=== PATIENT | female | born 1930 | race Asian ===

== ENCOUNTER 2016-11-11 09:27 | Emergency (ER) | payer OTHER ==
[~2016-11-11] VITALS: Ht 172.7 cm; Wt 75.8 kg
[2016-11-11 09:34] VITALS: TEMP 36.3; Ht 172.7 cm; Wt 75.8 kg
[2016-11-11] MEDS ORDERED: FURO-85 PO (09:39)
[2016-11-11] MEDS ORDERED: CMD/25 PO (09:39)
[2016-11-11] MEDS ORDERED: WARF5TAB90 PO (09:39)
[2016-11-11] MEDS ORDERED: LOSA1TAB PO (09:48)
[2016-11-11] MEDS ORDERED: MoRPHine SULFATE 4 MG/ML 1 ML CARP\\VIAL IV STA (09:52)
[2016-11-11] MEDS ORDERED: SODIUM CHLORIDE 0.9% 1000ML 1,000 ML IV ONE (10:00)
--- NOTE | 2016-11-11 10:27 | DIAGNOSTIC IMAGING REPORT ---
RIGHT FOREARM 2 VIEWS ROUTINE CLINICAL HISTORY: Right forearm and wrist pain. Trauma. COMPARISON: None. DISCUSSION: There is a comminuted distal radial fracture. The distal fragment is dorsally displaced x 6 mm. The examination is moderately limited from a positioning standpoint. Neither a true AP or a true lateral view were obtained. There is no evidence for soft tissue swelling. IMPRESSION: Technically limited study from a positioning standpoint. Comminuted distal radial fracture. Electronically signed by: Jian Patricia M.D. 11/11/2016 10:26 AM Dictated Date/Time: 11/11/2016 10:24 AM
--- NOTE | 2016-11-11 10:28 | DIAGNOSTIC IMAGING REPORT ---
RIGHT WRIST 2 VIEWS CLINICAL HISTORY: Fall with right wrist injury. FINDINGS: AP and lateral views of the right wrist are attempted. The examination is significantly degraded by suboptimal patient positioning. The skeletal structures are osteopenic. There is an impacted and comminuted fracture of the distal radial metaphysis with intra-articular extension. There is apex volar angulation and at least 8 mm of posterior distraction of the distal fragments. There are numerous small posteriorly distracted fracture fragments. The distal ulna is grossly intact. Overlying soft tissue edema is noted. There is atherosclerotic calcification of the regional arteries. IMPRESSION: There is an impacted, comminuted, angulated, and distracted fracture of the distal radial metaphysis with intra-articular extension as above. Electronically signed by: Jean Marie Olmos M.D. 11/11/2016 10:27 AM Dictated Date/Time: 11/11/2016 10:25 AM
--- NOTE | 2016-11-11 10:51 | DIAGNOSTIC IMAGING REPORT ---
AP CHEST WITH RIGHT-SIDED RIB SERIES CLINICAL HISTORY: Fall with right chest wall pain. FINDINGS: An AP chest radiograph with 5 additional views from a right-sided rib series are obtained. No prior studies are available for comparison at the time of dictation. The AP view is significantly degraded by patient rotation. The heart is enlarged and there is atherosclerotic calcification of the thoracic aorta. The pulmonary vasculature is noncongested. Calcified hilar lymph nodes are identified. A benign-appearing calcification is seen in the superior mediastinum, likely related to the thyroid gland. Chronic interstitial thickening is noted. There is no airspace consolidation, large pleural effusion, or pneumothorax. The skeletal structures are osteopenic. Question a distracted right anterior eighth and ninth rib fractures. The remainder of the bony thorax is grossly intact. Compression deformities are noted in the thoracolumbar spine. A 2 cm calcification in the right upper quadrant may represent a large right renal stone. IMPRESSION: 1. Cardiomegaly with no acute cardiopulmonary abnormality. 2. Question nondistracted right anterior eighth and ninth rib fractures. Correlate for point tenderness at this site. 3. An indeterminant 2 cm calcification is identified in the right upper quadrant, possibly representing a renal calculus. 4. Question a large calcified thyroid goiter. Electronically signed by: Jean Marie Olmos M.D. 11/11/2016 10:49 AM Dictated Date/Time: 11/11/2016 10:44 AM
[2016-11-11 11:16] LABS: BASO % 0.4 %; BASO ABS # 0.02 K/uL (0-0.2); COMPLETE YES; HEMATOCRIT 31.5 % (37-47); IG% 0.4 %; LYMPH % 11.8 %; LYMPH ABS # 0.59 K/uL (1.2-3.4); MEAN CELL VOLUME 84.2 fL (80-100); MEAN CORPUSCULAR HEMOGLOBIN 26.5 pg (25-34); MEAN CORPUSCULAR HGB CONC 31.4 g/dl (32-36); MONO % 7.6 %; NEUT % 78.8 %; PLATELET COUNT 198 K/uL (130-400); RED BLOOD COUNT 3.74 M/uL (4.2-5.4)
[2016-11-11 11:30] LABS: BUN/CREATININE RATIO 23.3 (10-20); CREATININE 1.2 mg/dl (0.60-1.20)
--- NOTE | 2016-11-11 11:33 | EMERGENCY ROOM VISIT NOTE ---
ED Visit Note First contact with patient: 09:38 The patient was seen and examined with Osman Love PA-C. I agree with the history, physical and findings. Please see the note for disposition and details.
[2016-11-11] MEDS ORDERED: OXYC-57 PO (12:24)
[2016-11-11 13:15] VITALS: BP 116/78; PULSE 86; O2SAT 96
--- NOTE | 2016-11-11 14:12 | EMERGENCY ROOM VISIT NOTE ---
ED Visit Note First contact with patient: 09:38 Chief Complaint: Right wrist pain. History of Present Illness: Ms. Elizabeth is an 86-year-old [place] female who is brought into the ED via ambulance accompanied by her daughter complaining of right wrist pain. She noted that the patient does not speak Macanese and her daughter interprets for her. Daughter reports that her mother was doing gardening and fell injuring her right wrist and forearm when she lost her balance on an uneven walkway. It is reported that she did not strike her head or have a loss of consciousness. Since the fall she has been complaining of right wrist pain and right lateral rib pain. Patient complains of severe distal radius/ulna pain. She is not able to describe her discomfort. She rates her discomfort 10/10. She denies radiation of pain. All movements and palpation of the distal radius and ulna increases her discomfort. Patient has not had any medications for pain prior to arrival at the hospital. She denies any associated headache, dizziness, neck pain, shoulder pain, elbow pain, hand weakness/numbness/tingling, neck pain, chest pain, abdominal pain, nausea, vomiting. Additionally patient complains of right sided rib pain. She was unable to describe this pain but reports it was less than her wrist pain. Her pain worsens with deep inspiration and palpation. She has not identified any alleviating factors related to the pain. She denies any shortness of breath, difficulty breathing, cough, wheezing, Review of Systems: As noted above in history of present illness. 8 body systems were reviewed and found to be negative as noted above. Past Medical History: Heart disease, hypertension, deep vein thrombus, status post cholecystectomy, unspecified eye surgery and hip/knee replacement surgery. Current Medications: Lasix, Coumadin, Cozaar. Allergies to Medications: Lisinopril. Social History: Patient is not employed; she lives with her daughter and feels safe in her home environment; daughter denies tobacco and alcohol use. Physical Examination: Vital Signs: Date Time Temp Pulse Resp B/P Pulse Ox O2 Delivery O2 Flow Rate FiO2 11/11/16 13:15 86 116/78 96 11/11/16 11:57 83 20 99 11/11/16 11:30 129/77 11/11/16 11:27 82 25 97 11/11/16 11:00 134/83 11/11/16 10:57 92 37 98 11/11/16 10:49 139/102 11/11/16 09:34 36.3 65 22 124/77 95 Room Air 11/11/16 09:33 124/77 GENERAL: 86-year-old female in moderate distress due to pain, nontoxic-appearing , afebrile and hemodynamically stable. NEUROLOGICAL: Awake, alert and oriented to person, place and time. Answering questions appropriately and following commands. No focal motor sensory deficits. Cranial nerves II through XII grossly intact. SKIN: Warm, dry and pink. No soft tissue trauma noted. HEENT: Atraumatic and normocephalic. Skull: No bony tenderness, depressions, deformity or crepitus. No raccoon's eyes or becerra signs. No drainage from ears and air; no hemotympanum. Face: No visible trauma, bony tenderness or ecchymosis. PERRLA. No malocclusion. No intraoral trauma. Airway patent. Trachea midline. No jugular venous distention. BACK: No tenderness over the bony cervical and thoracic spine. No step-offs, swelling, crepitus or ecchymosis. THORAX: Lungs sounds are clear to auscultation and equal bilaterally with symmetrical chest wall. Tenderness over the right lateral ribs, no crepitus, subcutaneous air or deformities noted. ABDOMEN: Flat, soft and nontender. Positive bowel sounds in all quadrants. No guarding, rigidity or organomegaly. RIGHT UPPER EXTREMITY: No tenderness in the shoulder, humerus or elbow. Moderate tenderness over the distal radius ulna with swelling, early bruising and bony deformity. No tenderness throughout the hand or fingers. Sensation intact to light touch throughout the fingers and capillary refill is brisk. ED Course: Patient is assessed as noted above. Laboratory Testing: Test 11/11/16 10:49 Range/Units White Blood Count 5.00 4.8-10.8 K/uL Red Blood Count 3.74 4.2-5.4 M/uL Hemoglobin 9.9 12.0-16.0 g/dL Hematocrit 31.5 37-47 % Mean Corpuscular Volume 84.2 80-100 fL Mean Corpuscular Hemoglobin 26.5 25-34 pg Mean Corpuscular Hemoglobin Concent 31.4 32-36 g/dl Platelet Count 198 130-400 K/uL Mean Platelet Volume 10.0 7.4-10.4 fL Neutrophils (%) (Auto) 78.8 % Lymphocytes (%) (Auto) 11.8 % Monocytes (%) (Auto) 7.6 % Eosinophils (%) (Auto) 1.0 % Basophils (%) (Auto) 0.4 % Neutrophils # (Auto) 3.94 1.4-6.5 K/uL Lymphocytes # (Auto) 0.59 1.2-3.4 K/uL Monocytes # (Auto) 0.38 0.11-0.59 K/uL Eosinophils # (Auto) 0.05 0-0.5 K/uL Basophils # (Auto) 0.02 0-0.2 K/uL RDW Standard Deviation 49.9 36.4-46.3 fL RDW Coefficient of Variation 16.0 11.5-14.5 % Immature Granulocyte % (Auto) 0.4 % Immature Granulocyte # (Auto) 0.02 0.00-0.02 K/uL Sodium Level 142 136-145 mmol/L Potassium Level 4.0 3.5-5.1 mmol/L Chloride Level 109 98-107 mmol/L Carbon Dioxide Level 26 21-32 mmol/L Anion Gap 7.0 3-11 mmol/L Blood Urea Nitrogen 28 7-18 mg/dl Creatinine 1.20 0.60-1.20 mg/dl Est Creatinine Clear Calc Drug Dose 32.7 ml/min Estimated GFR () 46.7 Estimated GFR (Non- 40.3 BUN/Creatinine Ratio 23.3 10-20 Random Glucose 94 70-99 mg/dl Calcium Level 9.0 8.5-10.1 mg/dl Right Wrist X-Rays: Were read by myself and the radiologist and shows an impacted, comminuted, angulated and distraction fracture of the distal radial metaphysis with intra-articular extension. Right Forearm X-Rays: Were read by myself and the radiologist showing the same fractures but no additional fractures or dislocations. PA Chest and Rib X-Rays: Were read by myself and the radiologist showing cardiomegaly with no acute cardiopulmonary abnormalities, probable nondistracting right anterior eighth and ninth rib fractures and an indeterminate to centimeter calcification in the right upper quadrant representing a possible renal calculus and questionable large calcified thyroid goiter. Patient was hydrated with normal saline and given 4 mg of morphine IV. Patient's case was reviewed with Dr. Penaloza; he independently assessed the patient and we agreed on diagnostic approach, treatment, disposition and plan. Patient's case was consulted with case management and Dr. Gaurav Goddard, orthopedic surgeon; after lengthy conversations involving the patient and Dr. Goddard's office and office follow-up was made today for possible surgical repair on Tuesday. Patient was placed in a volar splint with sling. Because of patient's age multiple considerations including hospital admission, admission to rehabilitation hospital and outpatient care were discussed. At its conclusion it was decided based on the daughter's once his that patient would go home with her and if any complications return for further evaluation. We did trial the patient for ambulation and she was able to do that successfully with slight arm support. Daughter was educated about tonight's findings and instructed on her treatment plan; she verbalizes understanding and agreement with this plan. Clinical Impression: Distal right radius fracture. Right sided rib fractures. Status post fall. Disposition: Patient discharged home in stable condition accompanied by her daughter; prior to departure she was reassessed and rated her discomfort 5/10. Plan: Patient was discharged with instructions to go to the [facility] office. Comfort measures including rest, ice, splint and sling use and Percocet were discussed with the daughter; she was given appropriate precautions for narcotics. Daughter was encouraged return her mother to the emergency department for any concerning symptoms or any new symptoms as needed.
== END 2016-11-11 13:15 | disposition home or self-care (01) ==
LOC: EDBD 09:27 → C.EDB 09:29
DX: S52.501A Unspecified fracture of the lower end of right radius, initial encounter for closed fracture (principal); S22.41XA Multiple fractures of ribs, right side, initial encounter for closed fracture; W01.0XXA Fall on same level from slipping, tripping and stumbling without subsequent striking against object, initial encounter; I10 Essential (primary) hypertension; I51.9 Heart disease, unspecified; Z86.718 Personal history of other venous thrombosis and embolism; Z90.49 Acquired absence of other specified parts of digestive tract; Z96.659 Presence of unspecified artificial knee joint; Z79.01 Long term (current) use of anticoagulants; Z79.899 Other long term (current) drug therapy; Z88.8 Allergy status to other drugs, medicaments and biological substances

== ENCOUNTER 2016-11-11 16:00 | Inpatient (IN) | payer OTHER ==
[~2016-11-11] VITALS: Ht 172.7 cm; Wt 75.8 kg
[~2016-11-11 16:00] MED LIST: CMD/25 PO; FURO-85 PO; LOSA1TAB PO; OXYC-57 PO; WARF5TAB90 PO
[2016-11-11] MEDS ORDERED: D5W AND 1/2NSS 1,000 ML IV SCH (17:40)
[2016-11-11] MEDS ORDERED: MAGNESIUM HYDROXIDE SUSP 30 ML UDC PO PRN (17:45)
[2016-11-11] MEDS ORDERED: ALUMINUM/MAGNESIUM SUSP 30 ML UDC PO PRN (17:45)
[2016-11-11] MEDS ORDERED: MoRPHine SULFATE 2 MG/ML CARP IV PRN (17:45)
[2016-11-11] MEDS ORDERED: ZOLPIDEM TARTRATE 5 MG TAB PO PRN (17:45)
[2016-11-11] MEDS ORDERED: ONDANSETRON INJ 2 MG/ML 2 ML VIAL IV PRN (17:45)
[2016-11-11] MEDS ORDERED: FUROSEMIDE 20 MG TAB PO SCH (17:45)
[2016-11-11] MEDS ORDERED: SODIUM CHLORIDE 0.45% 1000ML 1,000 ML IV SCH (20:00)
[2016-11-11 22:01] VITALS: BP 117/71; PULSE 97; TEMP 36.7; O2SAT 96
[2016-11-11 22:19] VITALS: Ht 172.7 cm; Wt 75.8 kg
[2016-11-11] MEDS: DOCUSATE SODIUM 100 MG CAP PO SCH (22:43)
[2016-11-11] MEDS: RANITIDINE HCL 150 MG TAB PO SCH (22:44)
[2016-11-11 22:52] LABS: INR 1.9 (0.9-1.1); PROTHROMBIN TIME (PATIENT) 20.7 SECONDS (9.0-12.0)
[2016-11-11 23:02] LABS: CREATININE 1.1 mg/dl (0.60-1.20); MAGNESIUM 2.3 mg/dl (1.8-2.4)
[2016-11-11 23:07] LABS: FERRITIN 13.8 ng/ml (8.0-388.0)
[2016-11-11 23:15] VITALS: BP 126/74; PULSE 78; TEMP 36.5; O2SAT 94
--- NOTE | 2016-11-11 23:18 | HISTORY & PHYSICAL EXAMINATION ---
DATE OF ADMISSION: 11/11/2016 SUBJECTIVE CHIEF COMPLAINT: This is a patient who earlier today on 11/11/2016 was doing some gardening at her home when she sustained a fall on her right side. She injured her right wrist. She was taken to the Emergency Room here at [facility] where x-rays were performed. She was noted to have a displaced distal radius fracture. The Emergency Room had discussed the x-rays with Dr. Goddard and the patient was sent to our [facility] [place] office in a short arm volar splint for evaluation for surgical management. However, whenever she arrived at the office, she was having significant amounts of pain after leaving the Emergency Room, so the decision was made to perform a closed reduction after a hematoma block and placement of a sugar-tong splint. The patient was then admitted into the hospital for pain control as well as for medical clearance for ORIF tomorrow. PAST MEDICAL HISTORY: Atrial fibrillation, hypertension. CURRENT HOME MEDICATIONS: Losartan, furosemide, Coumadin. ALLERGIES: LISINOPRIL. PAST SURGICAL HISTORY: Uncertain. FAMILY HISTORY: Noncontributory. SOCIAL HISTORY: The patient lives with her daughter. OBJECTIVE PHYSICAL EXAMINATION: GENERAL: The patient is alert and oriented x3. She appears to speak little Uzbek, her daughter gives the history and speaks for the patient throughout the exam. At times, she is in significant discomfort; however, after hematoma block and closed reduction and splinting, her pain seemed to be much better controlled. CARDIOVASCULAR: Heart has an irregularly irregular rhythm. No murmurs noted. LUNGS: Clear to auscultation bilateral. Radial pulses +2/4. Cap refill is less than 2 seconds. LYMPHATIC: No evidence of any swollen lymph nodes. MUSCULOSKELETAL: Upon inspection of the patient's right upper extremity, there is swelling noted of the right wrist. There is no range of motion or strength testing performed. She has moderate to severe tenderness of the distal radius and surrounding wrist anatomy. SKIN: There are no scars, rashes or ulcers noted. NEUROLOGIC: Sensation is normal and intact distally in the ulnar, radial and median nerve distributions. X-RAY EXAMINATION: Post-reduction films of the right wrist note splint to be intact. There is a well-aligned distal radius fracture status post reduction. ASSESSMENT AND DIAGNOSIS: Right distal radius fracture. PLAN: Above assessment was discussed with the patient and her daughter. At this time, the patient was admitted to [facility] for pain control as well as medical clearance. At this time, her Coumadin will be held and we will consult medicine for possible need for bridging if surgery may be in a couple days or for possible treatment of the patient for possible surgery tomorrow, 11/12/2016. The patient will be kept n.p.o. after midnight tonight and we will reevaluate the patient tomorrow morning for both medicine's recommendations as well as evaluate the patient's INR and the patient's pain control. DORIS
[2016-11-12] MEDS ORDERED: LIDODERM (LIDOCAINE) PATCH 5% TD ONE (00:29)
[2016-11-12] MEDS: OXYCODONE HCL IR 5 MG TAB (IMMEDIATE RELEASE) PO PRN ×2 (00:55→09:53)
[2016-11-12 01:44] LABS: THYROID STIMULATING HORMONE 1.43 uIu/ml (0.300-4.500)
--- NOTE | 2016-11-12 02:54 | INTERNAL MEDICINE CONSULTATION ---
DATE OF CONSULTATION: 11/11/2016 PCP : Dr. Gayle Patient seen at the request of Dr. Goddard and He Ramirez PA-C for preop eval and medical management. History obtained from records and the patient's daughter. Limited history from the patient secondary to language barrier. CHIEF COMPLAINT: Right wrist fracture. 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 No syncope, no shortness of breath. PX was seen at ther ER. Chest x-ray, chronic interstitial thickening and cardiomegaly, large calcified goiter, non-distracted right anterior 8th and 9th rib fracture. Wrist x-ray showed comminuted fracture, distal radius. Px sent to [facility] for outpx eval. Px sent back to hospital [facility] for possible R wrist surgery in AM. MEDICAL HISTORY: As above. A 2D echo from March 2013 showed old AFib, moderate diffuse LV hypokinesis, EF of 35-39%, LA dilatation, mild MR, mild TR, valvular hypertension, PASP of 40 mmHg. [place] seen [place] [facility] [place] [facility], last December 2015. As per spring clipper note, doing clinically well. Missed her last appointment supposed to be March 2016. SURGERIES : She had knee surgery, hip surgery. HOME MEDICATIONS: Include losartan, Lasix, and Coumadin. ALLERGIES: LISINOPRIL. FAMILY HISTORY: Anemia. PERSONAL AND SOCIAL HISTORY: Nonsmoker. No chronic intake of illicit drugs. 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 Lives with daughter. REVIEW OF SYSTEMS: Could not be reliably obtained secondary to language barrier. FUNCTIONALITY : able to do gardening and house work without chest pain/ shortness of breath. PHYSICAL EXAMINATION: VITAL SIGNS: Blood pressure was noted to be 117/77, pulse rate 97, respirations 16, sats 98 on room air. GENERAL: Noted to be comfortable, in no respiratory distress SKIN : pallor. HEENT: Pale palpebral conjunctivae. Dry mucosa. CHEST: Decreased breath sounds. Tenderness on the right anterior chest wall. HEART: Irregular. ABDOMEN: Some distention, nontender. RECTAL: intact sphincter, brown stool, heme negative. EXTREMITIES: min LE edema. no tenderness; dressing RUE NEUROLOGIC: No gross focality. LABS: Hemoglobin 9.6, hematocrit 31.1, platelets 160. Sodium 141, potassium 4, chloride 109, CO2 20, BUN 18, creatinine 1.2, glucose 94. INR 1.9. EKG as per my interpretation AFib, some T-wave flattening in the inferior leads , somewhat low voltage. ASSESSMENT: 1. Radial fracture, right secondary to traumatic fall 2. Traumatic right rib fractures. 3. 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 4. atrial fibrillation, rate controlled. INR is slightly subtherapeutic. 5. Anemia, chronic as per daughter 6. incidental finding of goiter on CXR RECOMMENDATIONS: No medical contraindication to contemplated procedure. careful IV hydration periop Resume home diuretics postop Monitor renal function once home diuretic therapy resumed. Lidoderm patch for R anterior rib fracture. ff anemia casillas outpx casillas for goiter Outpatient followup with PCP upon discharge. (Last PCP visit was 2013) PT/OT eval. DVT prophylaxis, SCDs as per Orthopedics orders on admission while INR less than 2 while Coumadin on hold. Resume Coumadin once bleeding risk is deemed to be minimal and negligible Thank you much for this consultation. T Dr. Weinstein will follow the patient's progress. DORIS
[2016-11-12] MEDS ORDERED: CEFAZOLIN IV 2,000 MG in DEXTROSE 5% 50ML 50 ML IV SCH (06:00)
[2016-11-12] MEDS ORDERED: CEFAZOLIN 2000 MG/60 ML D5W IV SCH (06:00)
--- NOTE | 2016-11-12 07:38 | History & Physical Bridge Note ---
H&P Re-Evaluation Bridge Note: I have examined the patient, reviewed the History & Physical and in the interval since the performance of the History & Physical I have noted the following changes of clinical significance: No changes noted
[2016-11-12 07:59] LABS: HEMATOCRIT 27.2 % (37-47); MEAN CELL VOLUME 83.4 fL (80-100); MEAN CORPUSCULAR HEMOGLOBIN 26.1 pg (25-34); MEAN CORPUSCULAR HGB CONC 31.3 g/dl (32-36); MEAN PLATELET VOLUME 9.2 fL (7.4-10.4); PLATELET COUNT 160 K/uL (130-400); RED BLOOD COUNT 3.26 M/uL (4.2-5.4); WHITE BLOOD COUNT 3.27 K/uL (4.8-10.8)
[2016-11-12 08:02] VITALS: BP 98/64; PULSE 66; TEMP 37; O2SAT 97
[2016-11-12 08:07] LABS: INR 1.9 (0.9-1.1); PROTHROMBIN TIME (PATIENT) 21.4 SECONDS (9.0-12.0)
[2016-11-12 08:24] LABS: BUN/CREATININE RATIO 23.9 (10-20); CREATININE 1.1 mg/dl (0.60-1.20)
[2016-11-12] MEDS ORDERED: LOSARTAN POTASSIUM 25 MG TAB PO SCH (09:00)
[2016-11-12] MEDS ORDERED: FUROSEMIDE 20 MG TAB PO SCH (09:00)
[2016-11-12] MEDS ORDERED: DEXTROSE 5% 1000ML 1,000 ML IV SCH (09:15)
[2016-11-12 09:22] LABS: CALCIUM 8.9 mg/dl (8.5-10.1)
[2016-11-12] MEDS: DOCUSATE SODIUM 100 MG CAP PO SCH ×2 (09:39→21:00)
[2016-11-12] MEDS: LOSARTAN POTASSIUM 25 MG TAB PO SCH (09:39)
[2016-11-12] MEDS: RANITIDINE HCL 150 MG TAB PO SCH ×2 (09:40→21:00)
[2016-11-12] MEDS: PANTOprazole SOD 40 MG TAB PO SCH (09:40)
[2016-11-12] MEDS: LIDODERM (LIDOCAINE) PATCH 5% TD SCH (09:48)
[2016-11-12] MEDS ORDERED: PHYTONADIONE 5 MG TAB PO STA (14:42)
--- NOTE | 2016-11-12 15:35 | Orthopedic Progress Note ---
Orthopedic Progress Note Date of Service November 12, 2016. Subjective Reports: feeling well, pain controlled w PO medications Additional Notes: Daughter is with patient and giving hx. States she is feeling much better today. Objective N/V intact, splint C/D/I, capillary refill less than 2 sec., A&O x3 Right hand fingers mobile. Sugartong splint in place. Date Time Temp Pulse Resp B/P Pulse Ox O2 Delivery O2 Flow Rate FiO2 11/12/16 08:02 37.0 66 16 98/64 97 Room Air 11/12/16 08:00 Room Air 11/11/16 23:32 Room Air 11/11/16 23:15 36.5 78 16 126/74 94 Room Air 11/11/16 22:47 Room Air 11/11/16 22:01 36.7 97 16 117/71 96 Room Air Laboratory Results 24 Hours: Test 11/11/16 22:33 11/12/16 07:45 Prothromb Time International Ratio 1.9 1.9 Prothrombin Time 20.7 SECONDS 21.4 SECONDS Hematocrit 27.2 % Hemoglobin 8.5 g/dL Assessment & Plan Assessment: Right distal radius fx Plan: Plan for ORIF right distal radius fx with volar plate tomorrow since her INR is up today. NPO after midnight tonight. Inhouse Planning Pain Management: PO Tylenol, Oxy IR Discharge Planning Discharge Planning: uncertain (Probably home after ORIF.) Pain Management: Oxy IR
[2016-11-12 15:46] VITALS: BP 131/77; PULSE 90; TEMP 36.6; O2SAT 95
--- NOTE | 2016-11-12 16:45 | Progress Note ---
Internal Med Progress Note Date of Service: November 12, 2016. Provider Documentation: SUBJECTIVE: The patient was seen and examined in presence of the Daughter Hungry and complains of some pain in right fore arm and right chest wall No SOB No recent symptomatology to suggest worsening cardiac status OBJECTIVE: Vital Signs-as noted below Exam: General-No distress at rest Eyes-normal ENT-normal Neck-supple Lungs-clear to auscultate bilaterally Decreased breath sound bilaterally Heart-Regular,no murmur appreciated Abdomen-benign,no masses,bowel sound present Extremities-No edema Neuro-AAOx3 No focal neuro deficit Lab data as noted below. 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 No Symptoms suggestive of cardiac origin No contraindication for proposed surgery Atrial fibrillation, rate controlled. INR is slightly subtherapeutic. Coumadin on hold Received Vit K -5 mg this afternoon Anemia, chronic as per daughter Incidental finding of goiter on CXR Outpx casillas for goiter Outpatient followup with PCP upon discharge. (Last PCP visit was 2013) DVT prophylaxis, SCDs as per Orthopedics orders on admission while INR 1.9 today Hold Coumadin Try Vit K -5mg orally Recheck INR in AM and resume Coumadin as soon as feasible DISPOSITION Discussed with the Daughter Vital Signs: Date Time Temp Pulse Resp B/P Pulse Ox O2 Delivery O2 Flow Rate FiO2 11/12/16 15:46 36.6 90 16 131/77 95 Room Air 11/12/16 08:02 37.0 66 16 98/64 97 Room Air 11/12/16 08:00 Room Air 11/11/16 23:32 Room Air 11/11/16 23:15 36.5 78 16 126/74 94 Room Air 11/11/16 22:47 Room Air 11/11/16 22:01 36.7 97 16 117/71 96 Room Air Lab Results: Results Past 24 Hours Test 11/11/16 22:33 11/12/16 07:45 Range/Units Absolute Reticulocyte Count 0.03 0.02-0.10 10^6/uL Percent Reticulocyte Count 0.9 0.5-2.0 % Prothrombin Time 20.7 21.4 9.0-12.0 SECONDS Prothromb Time International Ratio 1.9 1.9 0.9-1.1 Creatinine 1.10 1.10 0.60-1.20 mg/dl Est Creatinine Clear Calc Drug Dose 35.7 35.7 ml/min Estimated GFR () 51.9 51.9 Estimated GFR (Non- 44.8 44.8 Magnesium Level 2.3 1.8-2.4 mg/dl Iron Level 67 35-150 mcg/dl Total Iron Binding Capacity 358 250-450 mcg/dl Transferrin 286 200-360 mg/dl Transferrin % Saturation 17 15-50 % Ferritin 13.8 8.0-388.0 ng/ml Total Bilirubin 1.1 0.2-1 mg/dl Direct Bilirubin 0.3 0-0.2 mg/dl Aspartate Amino Transf (AST/SGOT) 22 15-37 U/L Alanine Aminotransferase (ALT/SGPT) 16 12-78 U/L Alkaline Phosphatase 52 45-117 U/L Total Protein 6.9 6.4-8.2 gm/dl Albumin 3.2 3.4-5.0 gm/dl Vitamin B12 Level 323 211-911 pg/mL Folate > 24.00 >5.38 ng/mL Thyroid Stimulating Hormone (TSH) 1.430 0.300-4.500 uIu/ml White Blood Count 3.27 4.8-10.8 K/uL Red Blood Count 3.26 4.2-5.4 M/uL Hemoglobin 8.5 12.0-16.0 g/dL Hematocrit 27.2 37-47 % Mean Corpuscular Volume 83.4 80-100 fL Mean Corpuscular Hemoglobin 26.1 25-34 pg Mean Corpuscular Hemoglobin Concent 31.3 32-36 g/dl RDW Standard Deviation 49.4 36.4-46.3 fL RDW Coefficient of Variation 16.0 11.5-14.5 % Platelet Count 160 130-400 K/uL Mean Platelet Volume 9.2 7.4-10.4 fL Sodium Level 143 136-145 mmol/L Potassium Level 4.0 3.5-5.1 mmol/L Chloride Level 110 98-107 mmol/L Carbon Dioxide Level 25 21-32 mmol/L Anion Gap 8.0 3-11 mmol/L Blood Urea Nitrogen 26 7-18 mg/dl BUN/Creatinine Ratio 23.9 10-20 Random Glucose 79 70-99 mg/dl Calcium Level 8.9 8.5-10.1 mg/dl
[2016-11-12] MEDS ORDERED: PHYTONADIONE INJ 2.5 MG in SODIUM CHLORIDE 0.9% 50ML 50 ML IV ONE (17:45)
[2016-11-12 22:55] VITALS: BP 118/64; PULSE 88; TEMP 36.8; O2SAT 94
[2016-11-13] VITALS (8 sets, daily range): BP systolic 102–130; BP diastolic 64–77; PULSE 70–112; TEMP 36–37.3; O2SAT 94–100
[2016-11-13] MEDS ORDERED: PROPOFOL IV EMULSION 10 MG/ML 20 ML VIAL IV ONE (07:10)
[2016-11-13] MEDS ORDERED: FENTANYL CITRATE INJ 50 MCG/1 ML 2 ML VIAL ONE ×3 (07:10→11:19)
[2016-11-13] MEDS ORDERED: LIDOCAINE HCL 2% 2 ML VIAL (20MG/ML) ONE (07:10)
[2016-11-13] MEDS ORDERED: DEXAMETHASONE SOD INJ 4 MG/ML VIAL ONE (07:10)
[2016-11-13] MEDS ORDERED: MoRPHine SULFATE 2 MG/ML CARP ONE ×2 (07:10→08:45)
[2016-11-13] MEDS ORDERED: ONDANSETRON INJ 2 MG/ML 2 ML VIAL ONE (07:10)
[2016-11-13] MEDS ORDERED: ATROPINE SULFATE 0.1 MG/ML 5ML SYR IV PRN (07:15)
[2016-11-13] MEDS ORDERED: EpHEDrine SULFATE INJ 50 MG/ML AMP IV PRN (07:15)
[2016-11-13] MEDS ORDERED: ONDANSETRON INJ 2 MG/ML 2 ML VIAL IV PRN (07:15)
[2016-11-13] MEDS ORDERED: BUPIVACAINE 0.5 % 5 MG/1 ML MPF 30ML VIAL ONE (07:22)
[2016-11-13] MEDS ORDERED: CEFAZOLIN SOD 1 GM VIAL ONE (08:18)
--- NOTE | 2016-11-13 10:38 | [facility] Post Operative Brief Note ---
Immediate Operative Summary Operative Date November 13, 2016. Pre-Operative Diagnosis Right Comminuted Distal Radius and Ulnar Styloid Fractures Post-Operative Diagnosis Right Comminuted Distal Radius and Ulnar Styloid Fractures; Volar ganglion cyst Procedure(s) Performed 1. Open Reduction Internal Fixation Right Distal Radius. 2. Closed Treatment Ulnar Styloid Fracture with Application Volar Splint 3. Resection Volar Ganglion Cyst Surgeon Dr. Gaurav Goddard Buffing Machine Operator Semiautomatic Surgeon(s) N Estimated Blood Loss 2ML Findings See dict Specimens None Drains N Anesthesia GLMA w/ local Complication(s) None Disposition Recovery Room / PACU
[2016-11-13] MEDS ORDERED: HYDROCODONE/ACETAMOPHEN 5/325MG TAB PO PRN (10:45)
--- NOTE | 2016-11-13 10:45 | Anesthesiology Progress Note ---
Anesthesia Post Op Note Date & Time November 13, 2016 at 10:44 Vital Signs Pain Intensity: 5.0 Vital Signs Past 12 Hours Date Time Temp Pulse Resp B/P Pulse Ox O2 Delivery O2 Flow Rate FiO2 11/13/16 07:20 Room Air 11/13/16 06:27 37.3 112 18 119/77 94 Room Air 11/12/16 23:54 Room Air 11/12/16 22:55 36.8 88 16 118/64 94 Room Air Notes Mental Status: alert / awake / arousable, participated in evaluation Pt Amnestic to Procedure: Yes Nausea / Vomiting: adequately controlled Pain: adequately controlled Airway Patency, RR, SpO2: stable & adequate BP & HR: stable & adequate Hydration State: stable & adequate Anesthetic Complications: no major complications apparent
[2016-11-13 11:11] LABS: HEMATOCRIT 29.2 % (37-47); MEAN CELL VOLUME 84.1 fL (80-100); MEAN CORPUSCULAR HEMOGLOBIN 25.9 pg (25-34); MEAN CORPUSCULAR HGB CONC 30.8 g/dl (32-36); MEAN PLATELET VOLUME 9.4 fL (7.4-10.4); PLATELET COUNT 167 K/uL (130-400); RED BLOOD COUNT 3.47 M/uL (4.2-5.4); WHITE BLOOD COUNT 3.86 K/uL (4.8-10.8)
[2016-11-13 11:19] LABS: INR 1.2 (0.9-1.1); PROTHROMBIN TIME (PATIENT) 13.3 SECONDS (9.0-12.0)
[2016-11-13] MEDS: FENTANYL CITRATE INJ 50 MCG/1 ML 2 ML VIAL IV PRN ×2 (11:22→11:27)
--- NOTE | 2016-11-13 11:29 | DIAGNOSTIC IMAGING REPORT ---
RIGHT WRIST MIN 3 VIEWS ROUTINE CLINICAL HISTORY: post-op Right postoperative evaluation COMPARISON: 11/11/2016 DISCUSSION: Evidence for open reduction internal fixation of the previously described radial fracture. Patient is now casting material. Alignment is improved anatomically. Continues be a mild degree of bony distraction. Several of the screws of the transverse component of the distal fixating plate potentially are in close proximity to the articular surfaces. There is no evidence for soft tissue swelling. IMPRESSION: Findings of open reduction internal fixation of the procedure described fracture distal radius. Electronically signed by: Calin Mancera M.D. 11/13/2016 11:27 AM Dictated Date/Time: 11/13/2016 11:26 AM
[2016-11-13 11:34] LABS: BUN/CREATININE RATIO 16.3 (10-20); CALCIUM 8.4 mg/dl (8.5-10.1); CREATININE 1.3 mg/dl (0.60-1.20); MAGNESIUM 2.4 mg/dl (1.8-2.4); POTASSIUM 4.1 mmol/L (3.5-5.1)
--- NOTE | 2016-11-13 11:49 | OPERATIVE REPORT ---
DATE OF OPERATION: 11/13/2016 PREOPERATIVE DIAGNOSES: 1. Right comminuted distal radius fracture. 2. Ulnar styloid fracture. 3. Resection of volar ganglion cyst. POSTOPERATIVE DIAGNOSIS: Same plus volar ganglion cyst. PROCEDURES: 1. Open reduction internal fixation right comminuted distal radius fracture. 2. Closed treatment of ulnar styloid fracture with application of volar plaster splint. 3. Resection volar ganglion cyst SURGEON: Dr. Goddard. MARINE SERVICE MANAGER: None. ANESTHESIA: General LMA with local. SPECIMENS: None. DRAINS: None. COMPLICATIONS: None. BLOOD LOSS: 2 mL. PERTINENT HISTORY: This is an 86-year-old female who had a fall on an outstretched upper extremity while doing some gardening on 11/11/2016. Seen in the ER subsequently in the office and then had closed reduction maneuver performed with hematoma block. She had improvement in her overall alignment; however, continued to have unstable comminuted distal radius fracture and ulnar fracture. The patient was then scheduled for surgery as indicated. All potential risks, benefits, complications, alternatives, rehab, potential for incomplete relief of symptoms, need for further surgery, DVT, PE, , persistent pain, swelling, scarring, weakness, neurovascular injury, wound complications, hardware failure, nonunion, malunion, need for revision surgery were discussed with patient and her daughter. They both decided to proceed with the procedure as indicated. OPERATION AND FINDINGS: PROCEDURE: The patient was taken to the operative suite, placed supine on the operating room table. After review of the consent and identification of proper operative site, the patient was anesthetized and LMA was placed. Tourniquet was placed high on the right upper extremity over cast padding. Right upper extremity was then sterilely prepped and draped in usual fashion, elevated and exsanguinated with an Esmarch bandage with the tourniquet inflated to 250 mmHg. Next, approximately 20 mL of 0.5% Marcaine plain was infiltrated around the planned surgical site on the volar aspect of the right distal radius. Next, a 15 blade scalpel was used to make an incision just radial to the flexor carpi radialis. The incision was then deepened through the subcutaneous tissue. Meticulous hemostasis was achieved with electrocautery. Full thickness skin flaps were developed and a ganglion cyst was encountered on the volar aspect of the wrist. This was carefully dissected free from the neurovascular structures and resected using an iris scissor. Next, the radial artery and vein retracted radially. Next, the flexor carpi radialis was then retracted ulnarward along with the neurovascular bundles. Next, the pronator quadratus was encountered and this was then incised along its radial insertion with a 15 blade scalpel and then elevated from the volar aspect of the distal radius. Once this was completed and the fracture was clearly visualized the fracture was then distracted with a Taiban elevator and a dental pick was used to debride fracture fragments and fibrous tissue from the distal radius. The fractures were then carefully reduced under live fluoroscopic assistance and then pinned in place with 0.062 K-wires x2 placed in the radial styloid into the proximal shaft of the radius. After stable fixation was achieved a Synthes volar locking plate was then provisionally fixed to the volar aspect of the distal radius through the sliding hole with a nonlocking screw. Under live fluoroscopic assistance the plate was positioned appropriately and then locked in place with multiple locking screws placed under live fluoroscopic assistance. Distal radius was firmly stabilized the K-wires were then removed from the radial styloid. The ulnar styloid was opted to be treated closed. The wound was then irrigated with sterile normal saline until clear. The pronator quadratus was then closed using a 2-0 Vicryl. The dermis was closed using buried interrupted 3-0 Vicryl sutures. The skin was closed using 4-0 nylon sutures. Next, approximately 10 mL of 0.5% Marcaine plain was injected around the surgical site and then a sterile compressive hand dressing and volar plaster splint was applied overwrapped with an Augie wrap. The tourniquet was then released. The patient was awakened and taken to recovery in stable condition. I attest to the content of the Intraoperative Record and any orders documented therein. Any exceptions are noted below. DORIS
--- NOTE | 2016-11-13 11:55 | DIAGNOSTIC IMAGING REPORT ---
RIGHT WRIST 2 VIEWS CLINICAL HISTORY: RIGHT DISTAL RADIUS FX Right fracture COMPARISON: None. DISCUSSION: Evidence for overt reduction internal fixation of the distal radial fracture. Expected soft tissue posterior back edema IMPRESSION: Image intensifier utilized for open reduction internal fixation of a distal radial fracture Electronically signed by: Calin Mancera M.D. 11/13/2016 11:53 AM Dictated Date/Time: 11/13/2016 11:53 AM
[2016-11-13] MEDS: DOCUSATE SODIUM 100 MG CAP PO SCH ×2 (13:07→21:54)
[2016-11-13] MEDS: PANTOprazole SOD 40 MG TAB PO SCH (13:08)
[2016-11-13] MEDS: RANITIDINE HCL 150 MG TAB PO SCH ×2 (13:08→21:00)
[2016-11-13] MEDS: LIDODERM (LIDOCAINE) PATCH 5% TD SCH (13:09)
[2016-11-13] MEDS: LOSARTAN POTASSIUM 25 MG TAB PO SCH (13:10)
[2016-11-13] MEDS: ACETAMINOPHEN 325 MG TAB PO PRN (22:00)
[2016-11-14 03:42] VITALS: BP 119/65; PULSE 81; TEMP 37.2; O2SAT 100
[2016-11-14 06:57] VITALS: BP 108/62; PULSE 69; TEMP 36.5; O2SAT 100
[2016-11-14 08:36] LABS: INR 1.1 (0.9-1.1); PROTHROMBIN TIME (PATIENT) 12.2 SECONDS (9.0-12.0)
[2016-11-14] MEDS: RANITIDINE HCL 150 MG TAB PO SCH (09:00)
[2016-11-14] MEDS: PANTOprazole SOD 40 MG TAB PO SCH (09:00)
[2016-11-14] MEDS: LOSARTAN POTASSIUM 25 MG TAB PO SCH (09:00)
[2016-11-14] MEDS: DOCUSATE SODIUM 100 MG CAP PO SCH (09:14)
[2016-11-14 09:15] VITALS: BP 98/51; PULSE 89
--- NOTE | 2016-11-14 09:15 | Orthopedic Progress Note ---
Orthopedic Progress Note Date of Service November 14, 2016. Subjective Post OP Day: 1 Reports: feeling well, pain controlled w PO medications, Denies: SOB, calf pain , chest pain, complaints, light headedness, nausea / vomiting Additional Notes: Examination today assisted with help of the daughter for interpretation. She is doing well with little pain. She was laying comfortably in bed. Objective N/V intact, splint C/D/I, capillary refill less than 2 sec., dressing C/D/I, A& O x3 Patient is able to move her fingers and elbow without pain. Date Time Temp Pulse Resp B/P Pulse Ox O2 Delivery O2 Flow Rate FiO2 11/14/16 06:57 36.5 69 18 108/62 100 Nasal Cannula 3.0 11/14/16 03:42 37.2 81 18 119/65 100 Nasal Cannula 4.0 11/13/16 23:40 Nasal Cannula 4.0 11/13/16 23:07 36.6 82 16 108/67 100 Nasal Cannula 4.0 11/13/16 19:00 36.8 79 16 102/64 96 Room Air 11/13/16 15:45 Room Air 11/13/16 14:58 36.0 71 16 107/69 99 Nasal Cannula 4.0 11/13/16 14:00 85 18 105/67 100 Nasal Cannula 4.0 11/13/16 13:00 70 18 130/76 99 Nasal Cannula 4.0 11/13/16 12:30 86 18 112/68 100 Nasal Cannula 4.0 11/13/16 12:00 36.8 80 16 115/67 98 Nasal Cannula 4.0 11/13/16 12:00 98 Nasal Cannula 4.0 11/13/16 11:35 36.7 87 20 98/65 100 Nasal Cannula 4 11/13/16 11:25 36.7 82 20 97/72 100 Nasal Cannula 4 11/13/16 11:15 82 20 119/84 100 Nasal Cannula 4 11/13/16 11:05 36.7 93 20 120/78 100 Nasal Cannula 2 11/13/16 10:55 81 20 123/72 100 Mask 10 11/13/16 10:45 98 20 121/71 100 Mask 10 11/13/16 10:35 87 20 120/70 100 Mask 10 11/13/16 10:28 36.5 90 20 115/70 100 Mask 10 Laboratory Results 24 Hours: Test 11/13/16 11:04 11/14/16 08:03 Hematocrit 29.2 % Hemoglobin 9.0 g/dL Prothromb Time International Ratio 1.2 1.1 Prothrombin Time 13.3 SECONDS 12.2 SECONDS Assessment & Plan Assessment: POD# 1 ORIF of Right distal radius fx Plan: Plan for patient to D/C today. Will start Coumadin back up with [facility]. she will follow with coumadin clinic on tuesday week for new INR Inhouse Planning Pain Management: PO Tylenol, Oxy IR Discharge Planning Discharge Planning: home Pain Management: Oxy IR
[2016-11-14] MEDS: LIDODERM (LIDOCAINE) PATCH 5% TD SCH (09:16)
[2016-11-14] MEDS ORDERED: HYDR-5688 PO (09:18)
[2016-11-14] MEDS ORDERED: ENOXAPARIN SQ (09:18)
[2016-11-14] MEDS: ACETAMINOPHEN 325 MG TAB PO PRN (09:21)
--- NOTE | 2016-11-14 09:22 | Discharge Instructions ---
Discharge Instructions Date of Service November 14, 2016. Admission Reason for Admission: R Wrist Fracture Discharge Discharge Diagnosis / Problem: S/P ORIF Distral Right wrist fracture Discharge Goals Goal(s): Decrease discomfort, Improve function Activity Recommendations Activity Limitations: per Instructions/Follow-up section . Instructions / Follow-Up Instructions / Follow-Up ACTIVITY RECOMMENDATIONS: * Avoid lifting anything heavier than a medium water glass until your first post operative visit. SPECIAL CARE INSTRUCTIONS: * Your bandage should be left in place until follow up. * Some drainage onto the dressing may occur. This is normal. * If the bandage feels excessively tight, you may loosen the elastic bandage. Then call the physician's office for further instructions. * If possible, keep your hand elevated above the level of your heart for the first 2 post operative days. You may use a sling if necessary. * You should move your fingers regularly (50-100 motions per hour) unless otherwise instructed. SPECIAL PRECAUTIONS: * If you notice increased drainage, fever over 101 degrees F. or severe, unremitting pain, call your physician/office at . * You may have been prescribed pain medication. If you experience nausea and/or skin rash, discontinue this medication and contact our office for an alternative medication. FOLLOW UP VISIT: If appointment is not already scheduled: Please call [facility] to make a follow-up appointment after your surgery at 2 weeks after the surgery. FOLLOW UP WITH COUMADIN CLINIC ON Tuesday11/17/16 TO HAVE INR DRAWN Current Hospital Diet Patient's current hospital diet: AHA Diet (Heart Healthy) Discharge Diet Recommended Diet: AHA Diet (Heart Healthy) Procedures Procedures Performed: 1. Open Reduction Internal Fixation Right Distal Radius. 2. Closed Treatment Ulnar Styloid Fracture with Application Volar Splint 3. Resection Volar Ganglion Cyst Pending Studies Studies pending at discharge: no Medical Emergencies . Who to Call and When: Medical Emergencies: If at any time you feel your situation is an emergency, please call [phone] immediately. . Non-Emergent Contact Non-Emergency issues call your: Surgeon Call Non-Emergent contact if: temperature is above 101.5, your pain is worsening, wound has increased drainage, wound has increased redness . "Provider Documentation" section prepared by Michael Yanez. . VTE Core Measure Inpt VTE Proph given/why not?: Enoxaparin (Lovenox)SQ, Warfarin (Coumadin) [place] Drug Monitoring Program Search Results: patient reviewed within database, no issues identified
[2016-11-14] MEDS ORDERED: LDDP5 TD (09:25)
[2016-11-14] MEDS ORDERED: ENOXAPARIN 120 MG/0.8 ML SYR SQ SCH (10:00)
[2016-11-14 11:03] VITALS: BP 98/51; PULSE 89; TEMP 36.5; O2SAT 100
--- NOTE | 2016-11-14 12:00 | Progress Note ---
Internal Med Progress Note Date of Service: November 14, 2016. Provider Documentation: SUBJECTIVE: The patient was seen and examined in presence of the Daughter Hungry and complains of some pain in right fore arm and right chest wall No SOB No recent symptomatology to suggest worsening cardiac status Remains stable following surgery OBJECTIVE: Vital Signs-as noted below Exam: General-No distress at rest Eyes-normal ENT-normal Neck-supple Lungs-clear to auscultate bilaterally Decreased breath sound bilaterally Heart-Regular,no murmur appreciated Abdomen-benign,no masses,bowel sound present Extremities-No edema Neuro-AAOx3 No focal neuro deficit Lab data as noted below. ASSESSMENT & PLAN: Right Radial fracture and Fracture of right sided ribs Secondary to Mechanical fall Pain control Ortho evaluation-appreciated S/P ORIF Remains stable as per Ortho Chronic systolic heart failure secondary to nonischemic cardiomyopathy, Seems to be compensated. No Symptoms suggestive of cardiac origin No contraindication for proposed surgery Atrial fibrillation, rate controlled. INR is slightly subtherapeutic. Coumadin on hold Received Vit K -5 mg this afternoon Will start Lovenox and Coumadin from today Coagulation clinic follow up Anemia, chronic as per daughter Incidental finding of Goiter on CXR Outpx casillas for goiter Outpatient followup with PCP upon discharge. (Last PCP visit was 2013) DVT prophylaxis, SCDs as per Orthopedics orders on admission while INR 1.9 today Hold Coumadin Try Vit K -5mg orally Lovenox and Coumadin started today DISPOSITION Discussed with the Daughter Medically stable Vital Signs: Date Time Temp Pulse Resp B/P Pulse Ox O2 Delivery O2 Flow Rate FiO2 11/14/16 11:03 36.5 89 18 100 Room Air 11/14/16 09:15 89 98/51 11/14/16 07:45 Room Air 11/14/16 06:57 36.5 69 18 108/62 100 Nasal Cannula 3.0 11/14/16 03:42 37.2 81 18 119/65 100 Nasal Cannula 4.0 11/13/16 23:40 Nasal Cannula 4.0 11/13/16 23:07 36.6 82 16 108/67 100 Nasal Cannula 4.0 11/13/16 19:00 36.8 79 16 102/64 96 Room Air 11/13/16 15:45 Room Air 11/13/16 14:58 36.0 71 16 107/69 99 Nasal Cannula 4.0 11/13/16 14:00 85 18 105/67 100 Nasal Cannula 4.0 11/13/16 13:00 70 18 130/76 99 Nasal Cannula 4.0 11/13/16 12:30 86 18 112/68 100 Nasal Cannula 4.0 11/13/16 12:00 36.8 80 16 115/67 98 Nasal Cannula 4.0 11/13/16 12:00 98 Nasal Cannula 4.0 Lab Results: Results Past 24 Hours Test 11/14/16 08:03 Range/Units Prothrombin Time 12.2 9.0-12.0 SECONDS Prothromb Time International Ratio 1.1 0.9-1.1
[2016-11-14] MEDS ORDERED: WARFARIN SOD 2.5 MG TAB PO SCH (16:00)
[2016-11-15] MEDS ORDERED: ENOXAPARIN 1.5 MG/KG SQ SCH (09:00)
--- NOTE | 2016-11-24 08:42 | Discharge Summary ---
Orthopedic Discharge Summary Admission Date/Reason November 11, 2016 at 21:55 R Wrist Fracture. Discharge Date/Disposition November 14, 2016 Home Diagnosis Principal Diagnosis: right distal radius fracture, ulnar styloid fx. Procedure(s) Performed 1. Open reduction internal fixation right comminuted distal radius fracture. 2. Closed treatment of ulnar styloid fracture with application of volar plaster splint. 3. Resection volar ganglion cyst Consultations Medicine Medication Reconciliation New Medications: Hydrocodone/Acetaminophen 5MG/325MG (Edison 5MG/325MG) Tab 1 TABLET PO Q4H PRN for Pain, #60 TAB Lidocaine (Lidocaine) 1 Patch Tdsy 1 PATCH TD QAM, #14 Place one patch on in the morning, remove daily and apply new patch. [Enoxaparin 1.5 Mg/Kg] () 1 EA INJ 1 EA SQ DAILY for 3 Days Give 1 injection SQ daily Continued Medications: Furosemide (Lasix) 20 Mg Tab 20 MG PO Q2D, TAB ALTERNATING WITH 40MG Q2D Furosemide (Lasix) 20 Mg Tab 40 MG PO Q2D, TAB ALTERNATING WITH 20MG Q2D Losartan Potassium (Cozaar) 25 Mg Tab 25 MG PO DAILY, TAB Warfarin Sod (Coumadin) 2.5 Mg Tab 2.5 MG PO 5XWK, TAB SUN,MON,WED,FRI,SAT Warfarin Sodium (Coumadin) 5 Mg Tab 5 MG PO 2XWK TUES & THURS Discontinued Medications: Oxycodone/Acetaminophen 5MG/325MG (Percocet 5MG/325MG) Tab 1 TAB PO Q6H PRN for Pain, #12 TAB For Initial Treatment Admission Physical Exam As per Admitting History & Physical. Hospital Course The patient was admitted on 517 for pain control and for medical management for preoperative clearance. Her INR was still elevated on 17 so the decision was made to hold off on surgery for another day. On 5..17, she underwent the above noted procedure. On POD #1, her pain was controlled and she was d/c'd home. Discharge Instructions Please refer to the electronic Patient Visit Report (Discharge Instructions) for additional information. Discharge Goals Goal(s): Decrease discomfort, Improve function Activity Recommendations Activity Limitations: per Instructions/Follow-up section . Instructions / Follow-Up Instructions / Follow-Up ACTIVITY RECOMMENDATIONS: * Avoid lifting anything heavier than a medium water glass until your first post operative visit. SPECIAL CARE INSTRUCTIONS: * Your bandage should be left in place until follow up. * Some drainage onto the dressing may occur. This is normal. * If the bandage feels excessively tight, you may loosen the elastic bandage. Then call the physician's office for further instructions. * If possible, keep your hand elevated above the level of your heart for the first 2 post operative days. You may use a sling if necessary. * You should move your fingers regularly (50-100 motions per hour) unless otherwise instructed. SPECIAL PRECAUTIONS: * If you notice increased drainage, fever over 101 degrees F. or severe, unremitting pain, call your physician/office at . * You may have been prescribed pain medication. If you experience nausea and/or skin rash, discontinue this medication and contact our office for an alternative medication. FOLLOW UP VISIT: If appointment is not already scheduled: Please call [facility] to make a follow-up appointment after your surgery at 2 weeks after the surgery. FOLLOW UP WITH COUMADIN CLINIC ON Tuesday11/17/16 TO HAVE INR DRAWN Current Hospital Diet Patient's current hospital diet: AHA Diet (Heart Healthy) Discharge Diet Recommended Diet: AHA Diet (Heart Healthy)
== END 2016-11-14 12:09 | disposition home or self-care (01) | DRG 502 ==
LOC: C.MSN 16:40 → UNDOADMIN 16:40 → C.MSN 21:55
PROVIDERS: ADMIT Orthopaedic Surgery Sports Medicine; ATTEND Orthopaedic Surgery Sports Medicine
PROC: 0PSKXZZ Reposition Right Ulna, External Approach (ICD-10-PCS; principal; 2016-11-13 07:30)
PROC: 0PSH04Z Reposition Right Radius with Internal Fixation Device, Open Approach (ICD-10-PCS; principal; 2016-11-13 07:30)
PROC: 0LB50ZZ Excision of Right Lower Arm and Wrist Tendon, Open Approach (ICD-10-PCS; principal; 2016-11-13 07:30)
DX: S52.501A Unspecified fracture of the lower end of right radius, initial encounter for closed fracture (principal); S52.614A Nondisplaced fracture of right ulna styloid process, initial encounter for closed fracture; M67.431 Ganglion, right wrist; I10 Essential (primary) hypertension; I48.91 Unspecified atrial fibrillation; Z79.01 Long term (current) use of anticoagulants; W01.0XXA Fall on same level from slipping, tripping and stumbling without subsequent striking against object, initial encounter